=== PATIENT | female | born 1965 | race Caucasian/White ===

== ENCOUNTER 2021-02-22 12:50 | Outpatient (CLI) | payer OTHER, SELFPAY ==
--- NOTE | 2021-02-22 14:08 | ECG_ITS ---
Measurements Intervals [place] Rate: 64 P: 25 NE: 130 QRS: 5 QRSD: 100 T: 46 QT: 415 QTc: 429 Interpretive Statements SINUS RHYTHM DELAYED PRECORDIAL R/S TRANSITION BASELINE ARTIFACT- I, II, III, AVR, AVL, AVF, V1-V6 BORDERLINE ECG Electronically Signed On 02-22-2021 15:26:10 [employer] by Kevan Barrientos D.O.
[2021-02-22 14:53] LABS: Basophils Percent Auto 0.4 % (0.2-1.2); Eosinophils Absolute Auto 0.2 K/mm3 (0-0.3); Eosinophils Percent Auto 2.8 % (0-4.4); Hematocrit 41.4 % (37.0-47.0); Hemoglobin 13.6 g/dL (12.0-15.0); Immature Granulocyte Absolute 0.01 K/mm3 (0.00-0.031); Immature Granulocyte Percent A 0.2 % (0-0.5); Lymphocytes Absolute Auto 2.26 K/mm3 (0.9-3.2); Mean Corpuscular HGB Conc 32.9 g/dl (32-36); Mean Corpuscular Hemoglobin 30.4 pg (26-34); Mean Corpuscular Volume 92.4 fl (80-100); Mean Platelet Volume 9.2 fl (7.4-10.4); Monocytes Absolute Auto 0.6 K/mm3 (0.1-0.6); Monocytes Percent Auto 10.6 % (2.6-8.5); Neutrophils Absolute Auto 2.4 K/mm3 (1.3-6.7); Platelet Count Result 371 k/mm3 (150-375); Red Blood Count 4.48 M/mm3 (4.2-5.4); Red Cell Distribution Width 13.6 % (11.5-14.5); White Blood Count 5.4 K/mm3 (4.5-10.0)
[2021-02-22 15:04] LABS: Partial Thromboplastin Time 29.6 SECONDS (22.3-36.8); Prothrombin Time 12.7 Seconds (11.1-14.7)
[2021-02-22 15:05] LABS: Alanine Aminotransferase 38 U/L (4-35); Albumin Level 4.9 g/dL (3.5-5.1); Alkaline Phosphatase 56 U/L (38-126); Anion Gap 9 mmol/L (8-16); Aspartate Amino Transferase 35 U/L (14-36); Bilirubin,Total 0.5 mg/dL (0.2-1.3); Blood Urea Nitrogen 13 mg/dL (7-17); Calcium 9.8 mg/dL (8.4-10.2); Carbon Dioxide 28 mmol/L (22-30); Chloride 101 mmol/L (98-107); Estimated Glomerular Filt Rate > 60; Glucose 102 mg/dL (65-110); Potassium 3.9 mmol/L (3.4-5.0); Sodium 138 mmol/L (137-145)
== END 2021-02-22 12:51 | disposition home or self-care (01) ==
LOC: ANHSURGERY 12:56
PROVIDERS: PCP Internal Medicine; Visit Provider Urology
DX: Z01.818 Encounter for other preprocedural examination (principal); N81.4 Uterovaginal prolapse, unspecified; E78.00 Pure hypercholesterolemia, unspecified; Z51.81 Encounter for therapeutic drug level monitoring; Z79.899 Other long term (current) drug therapy
CPT/HCPCS: 36415; 80053; 85025; 85610; 85730; 86850; 86900; 86901; 87086; 87088; 93005

== ENCOUNTER 2021-02-22 13:02 | Outpatient (CLI) | payer OTHER, SELFPAY ==
[2021-02-22 16:18] LABS: Vitamin D 25 Hydroxy 57.7 ng/mL
== END 2021-02-22 13:03 | disposition home or self-care (01) ==
PROVIDERS: PCP Internal Medicine; Visit Provider Internal Medicine
DX: E55.9 Vitamin D deficiency, unspecified (principal)
CPT/HCPCS: 36415; 82306

== ENCOUNTER 2021-03-01 02:13 | Day surgery (SDC) | payer OTHER, SELFPAY ==
--- NOTE | 2021-02-22 13:49 | PC.NURSE ---
Report to the Outpatient Waiting Room, entrance under the green pavilion located off [facility], at time _0600 on date 03/01/21 . OR Time: _729 . - You and your visitor will be asked a series of questions to screen for COVID 19 for your protection. - A mask is required within the hospital. - Only one visitor is allowed at this time. Patient visitors will be guided where to wait when not with patient. Preoperative COVID Testing Requirements: No COVID Test needed if: (proof is required; if not received patient will have Rapid Test prior to entry) - Patient has received COVID Vaccine at least 14 days prior to procedure date or - Patient has positive COVID test result within last 90 days of surgery date. COVID Test needed if above criteria is not met If not COVID vaccinated a COVID test must be conducted within 72 hours of surgery and patient is asked to isolate self from time of testing until procedure. You will go to the [facility] for your COVID testing. The [employer] [facility] site is located at the corner of [address] [facility]. You will only be called if COVID results are positive and your surgeon may reschedule your elective surgery date. Patients may have clear liquids (water, carbonated beverages, clear teas, apple juice) until 3 hours prior to surgery with a maximum of 20 ounces. - No food from midnight until time of surgery - Infants may have breast milk until 4 hours before surgery, formula 6 hours prior to surgery. - Children will be allowed to drink immediately following surgery. If applicable, please bring a bottle or sippy cup to assist with drinking. Juice, water, soda, and popsicles are readily available. For infants on formula, please bring formula the day of surgery. Pacifiers are allowed. Take the following medications with a SIP of water the morning of surgery: __NONE Medications to discontinue per physician ____MULTIVITAMIN 3 DAYS PRE OP Date to take last dose__02/25/21 Please no make-up, nail south su[place]ese, hairspray, perfume, deodorant, or body powder the day of surgery. No jewelry (including any body piercings) or valuables the day of surgery, leave them at home. Please take a shower or bath the night before, or the morning of, surgery with an antibacterial soap. Wear comfortable, loose fitting clothing. Children are encouraged to wear pajamas. - Jewelry must be removed prior to entering the operating room. Rings and piercings that are not removed may be cut off. - The hospital will not accept responsibility for valuables. - Please leave all valuables, including medications, at home the day of surgery. If you are going home after surgery, a licensed production truck driver must drive you home. - NO public transportation without another adult. - We recommend that an adult stay with you for 24 hours following discharge. - We also recommend that you do not drive, make important decision, drink alcoholic beverages, or take any drugs that were not prescribed by your health care provider for at least 24 hours after your discharge time. For Pediatric surgeries, we recommend two adults accompany the child home (only one inside the building at this time). Follow any additional instructions given to you from your surgeon. VERBAL instructions given to __PATIENT and asked if any additional questions and then verbalized understanding. Patient advised to call surgeon office or pre surgery nurse liaison [phone] if any additional questions.
[2021-02-22 14:09] VITALS: BP 145/88; PULSE 77; RESP 16; TEMP 36.7; O2SAT 100; BMI 28.9
--- NOTE | 2021-02-23 13:00 | P.HP_ITS ---
H&P: HPI History of Present Illness Date/Time: 02/23/21 13:00 55-year-old 2 para 2 admitted for robotic supracervical hysterectomy and bilateral salpingo-oophorectomy secondary to prolapse. She will also injury to a sacral colpopexy with Dr. Roberts. Risks and benefits were reviewed including a exclusive of , aspiration pneumonia, bleeding, transfusion, perforation injury to bowel, bladder, ureters, or other internal organs with need for open laparotomy. She received the ACOG handout titled hysterectomy as well as the de [place]unior handout. She had all questions answered and asked to proceed Chief Complaint: Uterine prolapse Review of Systems Review of Systems: All systems reviewed & are unremarkable except as noted in HPI and below PMFSH Social History Social History Smoking status: Never smoker Alcohol intake: current Drinks per week: 3 Spiritual care concerns: No Meds Home Medications and Allergies Home Medications Medication Instructions Recorded Confirmed Type xjbzfzhd-yan-zazg-FA-lutein 1 tablet PO HS 02/22/21 02/22/21 History [Centrum Silver Women] rosuvastatin 10 mg PO HS 02/22/21 02/22/21 History Allergies Allergy/AdvReac Type Severity Reaction Status Date / Time latex AdvReac Swelling Verified 02/22/21 13:23 Penicillins AdvReac Hives AND Verified 02/22/21 13:22 RASH Vital Signs Vital Signs - 24 hr 02/22/21 14:09 Temperature 98.1 F Pulse Rate 77 Respiratory Rate 16 Blood Pressure 145/88 H Pulse Oximetry 100 Exam Const: General: no acute distress Eyes: General: appearance normal, both eyes and all related structures Neck: Neck: supple and no JVD Thyroid: thyroid normal Resp: Effort & Inspection: normal respiratory effort Auscultation: clear to auscultation bilaterally Cardio: Rate: regular rate Rhythm: regular rhythm GI: Inspection: non-distended GI Palp: Yes Soft to palpation, No Tenderness to palpation present (GI) and No Guarding due to palpation present (GI) A uscultation: normal bowel sounds : External Female Exam: normal external appearance Speculum Exam - Vagina: normal appearance of the vagina Speculum Exam - Cervix: normal appearance of the cervix (Second-degree prolapse is noted.) Bimanual exam- vagina & uterus: uterine shape normal Bimanual Exam- Adnexa, other: normal adnexae Skin: General skin exam: no rashes or lesions noted Extrem: General: normal to inspection and no edema Psych: Mental Status: mental status grossly normal Affect: normal affect Assessment and Plan Additional Plan Impression: Uterine prolapse Plan: Robotic supracervical hysterectomy and bilateral salpingo-oophorectomy and robotic sacral colpopexy
--- NOTE | 2021-02-26 08:48 | PM.IMHP ---
H&P: HPI History of Present Illness Date/Time: 02/26/21 08:48 This is a 55-year-old female with uterine prolapse and stress incontinence. She is here today for surgical correction Chief Complaint: Pelvic organ prolapse, stress incontinence Review of Systems Review of Systems: All systems reviewed & are unremarkable except as noted in HPI and below [facility] Social History Social History Smoking status: Never smoker Alcohol intake: current Drinks per week: 3 Spiritual care concerns: No Meds Home Medications and Allergies Home Medications Medication Instructions Recorded Confirmed Type ddpdtmsy-tlp-bzta-FA-lutein 1 tablet PO HS 02/22/21 02/22/21 History [Centrum Silver Women] rosuvastatin 10 mg PO HS 02/22/21 02/22/21 History Allergies Allergy/AdvReac Type Severity Reaction Status Date / Time latex AdvReac Swelling Verified 02/22/21 13:23 Penicillins AdvReac Hives AND Verified 02/22/21 13:22 RASH Exam Narrative: Urethral hypermobility noted. [place] at +1. Assessment and Plan Assessment and plan (1) Uterine prolapse: Code(s): N81.4 - Uterovaginal prolapse, unspecified Status: Acute Assessment and Plan: Robotic sacral colpopexy (2) LEE (stress urinary incontinence, female): Code(s): N39.3 - Stress incontinence (female) (male) Status: Acute Assessment and Plan: Urethral sling
[2021-03-01] VITALS (14 sets, daily range): BP systolic 105–148; BP diastolic 63–82; PULSE 56–91; RESP 12–18; TEMP 36.1–36.8; O2SAT 99–100
--- NOTE | 2021-03-01 06:43 | P.PNAN_ITS ---
Anes - Initial Pre Proc Eval Procedure: Operation Date: 03/01/21 07:30 Proposed Procedures p Robotic Sacrocolpopexy, Urethral Sling - Raheem Roberts MD s Urethral Sling - Raheem Roberts MD s Robotic Assisted Supracervical Hysterectomy With Bilateral Salpingo- Oophorectomy - Fabricio Gillette MD Date/Time: 03/01/21 06:43 Surgeon: Raheem Roberts MD Pre Op Diagnosis: compl uterine prolapse, stress incont Patient Data Age: 55 Gender: F Height: 1.63 m Weight: 76.4 kg Last Vital Signs Temp 36.7 C 02/22/21 14:09 Pulse 77 02/22/21 14:09 Resp 16 02/22/21 14:09 BP 145/88 H 02/22/21 14:09 Pulse Ox 100 02/22/21 14:09 Allergies Allergy/AdvReac Type Severity Reaction Status Date / Time latex AdvReac Intermediate Swelling Verified 03/01/21 06:41 Penicillins AdvReac Intermediate Hives AND Verified 03/01/21 06:41 RASH Home Medications Medication Instructions Recorded Confirmed Type aylufghy-dmt-qbvv-FA-lutein 1 tablet PO HS 02/22/21 03/01/21 History [Centrum Silver Women] rosuvastatin 10 mg PO HS 02/22/21 03/01/21 History Patient hx anesthesia problems: none Family hx anesthesia problems: none Results Review: All pre-operative results and documents have been reviewed as part of the pre-operative evaluation. [facility] Past Medical History Medical History (Updated 03/01/21 @ 06:45 by Steven Ac DO) Hyperlipidemia Social History Social History Smoking status: Never smoker Alcohol intake: current Drinks per week: 3 Living arrangements: with family Spiritual care concerns: No Anes - Eval Final PreProcedure Day of Procedure 03/01/21 06:43 Patient weight: overweight Heart: regular rate and rhythm Lungs: clear to auscultation and normal air movement Airway: Mallampati scale class II Neurological: alert and oriented Last oral intake: >/= 8 hours ASA classification: II Emergent: no Anesthetic plan: proceed Anesthesia type and monitoring: general ETT and standard monitoring Results Review: All pre-operative results and documents have been reviewed as part of the pre-operative evaluation. Informed Consent: The patient's anesthetic plan and its attendant risks and benefits were discussed with the patient/family/POA. Questions were solicited and answers provided to the satisfaction of the patient/family/POA.
--- NOTE | 2021-03-01 07:11 | WPDHPUPDATE1 ---
History and Physical Update Update Date/Time: 03/01/21 07:11 History and Physical has been reviewed, including an updated exam of the patient. There are NO changes in the patient's condition. Risks, benefits, and alternatives have been discussed and questions answered. Patient agrees to proceed with procedure.
--- NOTE | 2021-03-01 07:17 | WPDHPUPDATE1 ---
History and Physical Update Update Date/Time: 03/01/21 07:17 History and Physical has been reviewed, including an updated exam of the patient. There are NO changes in the patient's condition. Risks, benefits, and alternatives have been discussed and questions answered. Patient agrees to proceed with procedure.
[2021-03-01] MEDS: LACTATED RINGERS 1,000 ML 30 ML IV CONT ×2 (07:20→10:35)
[2021-03-01] MEDS: metroNIDAZOLE 500 MG/ISO 100ML 500 MG/100 ML BAG 100 MG IVPB (07:30)
[2021-03-01] MEDS: ceFAZolin 2 GM/D5W 50 ML 2 GM/50 ML BAG IVPB (07:30)
[2021-03-01] MEDS: KETOROLAC 30 MG/ML VIAL (*BKC) IV PUSH (07:50)
--- NOTE | 2021-03-01 08:27 | W.PM.PROC2 ---
Procedure Note - Detailed Date of Procedure 03/01/21 Pre-op Diagnosis compl uterine prolapse, stress incont Post-op Diagnosis same Procedure Performed Robotic assisted laparoscopic supracervical hysterectomy and bilateral salpingo-oophorectomy Surgeon Fabricio Gillette MD Anesthesia general Indications This is a pleasant 55-year-old female with uterine prolapse and stress urinary incontinence Findings Uterine prolapse. Normal-appearing ovaries and tubes. There was a small simple follicular cyst on the left ovary. Description of Procedure The patient was prepped draped in the normal sterile fashion placed in the dorsal lithotomy position. Under excellent general trach anesthesia weighted speculum placed posterior fornix vagina. Anterior lip of the cervix grasped with single-tooth tenaculum the Adams's cannula inserted at to be attached later for uterine manipulation. Bladder was drained urine with a 16 Serbian catheter. The weighted speculum was removed and Dr. watson proceeded to dock the patient. Please see the operative report for full details. Once the robot had been docked attention was turned to the enrollment counselor. The left round ligament was grasped, burned, cut. Anteriorly a bladder flap was formed by sharply dissecting across the peritoneum and reflecting the bladder caudally to the opposite round ligament was clamped, burned, cut. Next the left infundibulopelvic structure was skeletonized to remove the left ovary and tube. This was serially clamped, burned, cut and brought to level of previously cut round ligament. In like fashion removing the right ovary and tube the infundibulopelvic structure on the right was clamped, burned, cut and brought to level of previously cut round ligament. The cardinal broad ligaments on the left were then serially skeletonized clamped burned and cut and brought down the lateral edge hugging the uterus and cervix until the uterine vessels could be seen on the left. These large and tortuous vessels were individually clamped, burned, cut. In like fashion the cardinal broad ligaments on the right were serially skeletonized. These were clamped, burned, cut and brought down to the level of the uterine vessels on the right. These were individually clamped, burned, cut. Blanching of the uterus was seen. The uterus was then bivalved down to the level of the supracervical area and then a supracervical incision made and the 2 portions of uterus were placed in an Endo-Catch. Blood loss estimated 5cc to this point and Dr. locke took over from there. All sponge, needle, instrument counts were correct at that point. There were no immediate complications up to this point Estimated Blood Loss 5 Drains No Packing No Pathology yes Complications No immediate complications Condition stable Disposition no change
[2021-03-01] MEDS: KETOROLAC 15 MG/ML VIAL (*BKC) IV PUSH (10:02)
[2021-03-01] MEDS: LIDO 1%/EPINEPHRINE 1:100,000 50 ML VIAL 20 ML INFILTRATE (10:06)
--- NOTE | 2021-03-01 10:34 | W.PM.PROC2 ---
Procedure Note - Detailed Date of Procedure 03/01/21 Pre-op Diagnosis complete uterine prolapse, stress incontinence, female perineal laxity Post-op Diagnosis same Procedure Performed robotic assisted laparoscopic sacral colpopexy urethral sling(TOT) perineal repair /perineoplasty cystoscopy Surgeon Raheem Roberts MD Anesthesia general Indications this is a woman with uterine prolapse, stress incontinence, and female perineal laxity. They present for surgery. They understand risks of bleeding, infection, damage to surrounding organs, damage to the bowel or urinary tract, diskitis, recurrence of prolapse, recurrent or persistent stress incontinence, vaginal or urinary tract mesh exposure, obstructive voiding requiring secondary procedure, hip and leg pain, dyspareunia, and other perioperative intraoperative and postoperative complications. They agreed to proceed. Findings See dictation Description of Procedure She was correctly identified. Informed consent is obtained. She was brought to the operating room. She was given general anesthesia. She was placed in the dorsal lithotomy position. All pressure points were padded. She was given appropriate perioperative antibiotics. A time-out was performed. I anesthetized the skin 3 fingerbreadths cephalad to the umbilicus. I incised the skin. I grasped the fascia with Raven clamps. I entered the fascia sharply in a Hason type technique. I placed Vicryl sutures for later fascial closure. the midline trocar was placed. Under direct vision 2 additional trocars were placed in the right and left upper quadrant. She was placed in steep Trendelenburg. The robot was docked. I turned her over to her groundskeeper porter for their portion of the procedure. That will be dictated in a separate op note. I then sat at the console. With a Sizer in the vagina I created a plane on the anterior and posterior vaginal wall for several cm taking great care not to injure the vagina bladder or rectum. I introduced the mesh into the abdomen. I sewed the anterior leaf of the mesh on the anterior vaginal wall and the posterior leaflet of mesh on the posterior vaginal wall with multiple sutures of 2 0 [place] taking great care not to go through and through. I reflected the colon laterally. I opened up the posterior peritoneum over the sacral promontory and carried this incision into the cul-de-sac. I freed up the edges for later retroperitonealization of the mesh. I located the anterior longitudinal ligament of the sacrum. It was cleaned off of all fatty tissues. I tensioned my mesh appropriately. I went to the bedside to perform a vaginal exam. There was good apical support without undue tension. I then sewed the proximal leaflet of mesh onto the anterior longitudinal ligament with several sutures of 2 0 [place]. I then used a 2 0 Monocryl to meticulously retroperitonealized all mesh. I allowed the colon to go back into its normal anatomic location. There is no signs of any impingement. The specimen was extracted. The abdomen was exited. Fascial sutures were closed. Wounds were irrigated. Skin was closed with Monocryl as well as surgical glue. She was then repositioned and prepped for perineal surgery. I anesthetized the adri-shaped area of skin on the perineum. I removed this area of skin. I performed a classic perineal repair with 0 Vicryl suture. I used a 2 0 Vicryl to close the mucosa. There was excellent perineal support without undue narrowing of the vagina. I then marked out the inner thigh incisions. I anesthetized the skin and made those incisions. I then anesthetized the anterior vaginal wall over the mid urethra. I made a 1 cm incision. I dissected out laterally taking great care not to injure the urethra or the vaginal wall. I then passed the helical trocars 1st on the left than on the right. I did this from the thigh incision towards the vaginal incision. Ila mead
[2021-03-01] MEDS: fentaNYL CITRATE INJ (*CRX) 100 MCG/2 ML VIAL 25 MCG IV PUSH ×2 (10:55→10:58)
[2021-03-01] MEDS: MEPERIDINE HCL INJ (*CRX) 50 MG/ML AMPUL 25 MG IV PUSH (12:10)
--- NOTE | 2021-03-01 12:30 | SUR.PHASEI ---
1225: RN instilled 400cc in Munson and d/c munson after.
--- NOTE | 2021-03-01 15:16 | SUR.PHASEII ---
1350 DR ALAS AWARE PT UNABLE TO URINATE- ORDERED FOR LATEX FREE CATHETER TO BE INSERTED. PT CAN STILL BE DISCHARGED HOME WITH MCDOWELL CATHETER & FOLLOW UP WITH DR ALAS ON MONDAY FOR A MCDOWELL REMOVAL AND VOIDING TRIAL.
== END 2021-03-01 14:45 | disposition home or self-care (01) ==
PROVIDERS: Obstetrics & Gynecology; PCP Internal Medicine; Visit Provider Urology
PROC: (CPT 57425; principal; 2021-03-01 07:30)
PROC: 0UT94ZZ Resection of Uterus, Percutaneous Endoscopic Approach (ICD-10-PCS; CPT 57425; 2021-03-01 07:30)
DX: N81.3 Complete uterovaginal prolapse (principal); N39.3 Stress incontinence (female) (male); N80.0 Endometriosis of uterus; D25.1 Intramural leiomyoma of uterus; N73.6 Female pelvic peritoneal adhesions (postinfective); N83.8 Other noninflammatory disorders of ovary, fallopian tube and broad ligament; N83.02 Follicular cyst of left ovary
CPT/HCPCS: 57425; 57288; 58542; S2900 ×2; 36415; 80053; 82306; 85025; 85610; 85730; 86850; 86900; 86901; 87086; 87088; 88307; 93005; A9270; C1771; C1781; C9290; J0131; J0690; J1100; J1200; J1885; J2175; J2250; J2405; J2704; J2710; J3010; J7030; J7120